=== PATIENT | male | born 1970 | race Caucasian/White ===

== ENCOUNTER 2019-01-15 15:40 | Emergency (ER) | payer BC ==
--- NOTE | 2019-01-15 16:23 | ED Physician Chart ---
ED Chief Complaint/HPI - Patient Information Date Seen:: 01/15/19 Time Seen:: 16:19 Chief Complaint:: abd pain possible blood in stool History of Present Illness:: 48 yr old male with acute onset llq abd pain since thurs no fever or diarhea no vomiting or hematemesis ED Review of Systems - Review of Systems General/Constitutional: No fever, No chills, No weight loss, No weakness, No diaphoresis, No edema, No loss of appetite Skin: No skin lesions, No rash, No bruising Head: No headache, No light-headedness Eyes: No loss of vision, No pain, No diplopia ENT: No earache, No nasal drainage, No sore throat, No tinnitus Neck: No neck pain, No swelling, No thyromegaly, No stiffness, No mass noted Cardio Vascular: No chest pain, No palpitations, No PND, No orthopnea, No edema Pulmonary: No SOB, No cough, No sputum, No wheezing GI: Pain, Melena G/U: No dysuria, No frequency, No hematuria Musculoskeletal: No bone or joint pain, No back pain, No muscle pain Endocrine: No polyuria, No polydipsia Psychiatric: No prior psych history, No depression, No anxiety, No suicidal ideation Hematopoietic: No bruising, No lymphadenopathy Allergic/Immuno: No urticaria, No angioedema Neurological: No syncope, No focal symptoms, No weakness, No paresthesia, No headache, No seizure, No dizziness, No confusion, No vertigo ED Past Medical History - Past Medical History Past Medical History: No significant medical hx ED Physical Exam - Physical Examination General/Constitutional: Awake, Well-developed, well-nourished, Alert, No distress, GCS 15, Non-toxic appearing, Ambulatory Head: Atraumatic Eyes: Lids, conjuctiva normal, PERRL, EOMI Skin: Nl inspection, No rash, No skin lesions, No ecchymosis, Well hydrated, No lymphadenopathy ENMT: External ears, nose nl, Nasal exam nl, Lips, teeth, gums nl Neck: Nontender, Full ROM w/o pain, No JVD, No nuchal rigidity, No bruit, No mass, No stridor Respiratory: Nl effort/Exclusion, Clear to Auscultation, No Wheeze/Rhonchi/Rales Cardio Vascular: RRR, No murmur, gallop, rubs, NL S1 S2 GI: Normal BS's Other GI comments:: LLQ tenderness with deep palpation mild perioteneal signs : No CVA tenderness Extremities: No tenderness or effusion, Full ROM, normal strength in all extremities, No edema, Normal digits & nails Neuro/Psych: Alert/oriented, DTR's symmetric, Normal sensory exam, Normal motor strength, Judgement/insight normal, Mood normal, Normal gait, No focal deficits Misc: Normal back, No paraspinal tenderness ED Assessment - Assessment General Assessment: abd pain ED Septic Shock - . Is Septic Shock (SBP<90, OR Lactate>4 mmol\L) present?: No ED Reassessment (Disposition) - Reassessment Reassessment:: abd pain - Diagnosis Diagnosis:: abd pain - Patient Disposition Discharge/Transfer:: Home Condition at Disposition:: Stable
[2019-01-15 16:58] LABS: BASOPHILE ABSOLUTE 0.8 Th/cumm (0-0.2); EOSINOPHILE ABSOLUTE 0.3 Th/cmm (0.1-0.4); HEMATOCRIT 47.1 % (41.0-60); HEMOGLOBIN 15.7 gm/dL (12-16); LYMPHOCYTE ABSOLUTE 3.4 Th/cmm (1.5-3.0); MEAN CELL VOLUME 86.9 fl (80-99); MEAN CORPUSCULAR HGB CONC 33.4 pg (28.0-36.0); MONOCYTE ABSOLUTE 1.1 Th/cmm (0.3-1.0); NEUTROPHILE ABSOLUTE 11.2 Th/cmm (1.8-8.0); PLATELET COUNT 425 Th/cmm (150-400); RED BLOOD COUNT 5.42 Mil/cmm (4.30-5.70)
[2019-01-15 17:16] LABS: WHITE BLOOD COUNT 16.8 Th/cmm (4.8-10.8)
[2019-01-15 17:36] LABS: BAND NEUTROPHILE 2 % (0-10); BASOPHIL 0 % (0-3); EOSINOPHIL 1 % (0-5); LYMPHOCYTE 20 % (20-50); MONOCYTE 5 % (2-10); NEUTROPHILS 72 % (40-80)
[2019-01-15 17:37] LABS: PLATELET ESTIMATE ADEQUATE (NORMAL)
[2019-01-15 17:53] LABS: URINE SOURCE CLEAN C
[2019-01-15 17:58] LABS: URINE BILIRUBIN NEGATIVE (NEGATIVE); URINE BLOOD NEGATIVE (NEGATIVE); URINE GLUCOSE (UA) NEGATIVE (NEGATIVE); URINE KETONE NEGATIVE (NEGATIVE); URINE LEUKOCYTE ESTERASE NEGATIVE (NEGATIVE); URINE NITRATE NEGATIVE (NEGATIVE); URINE PROTEIN NEGATIVE (NEGATIVE); URINE UROBILINOGEN 0.2 E.U./dL (0.2 - 1.0)
[2019-01-15 17:59] LABS: URINE CLARITY CLEAR (CLEAR); URINE COLOR YELLOW
[2019-01-15 18:00] LABS: URINE MICROSCOPIC INDICATED? YES
[2019-01-15 18:18] LABS: URINE BACTERIA NONE SEEN /hpf (NONE SEEN); URINE EPITHELIAL CELLS RARE /lpf (FEW); URINE RBC NONE SEEN /hpf (0-5); URINE WBC NONE SEEN /hpf (0-5)
--- NOTE | 2019-01-16 07:31 | Diagnostic Imaging Report ---
Exam: CT examination of the pelvis HISTORY: Abdominal pain Total DLP equals 671 CTDI equals 12.3 Findings: Multiple contiguous thin section of the abdomen pelvis obtained from lower thorax to the pubic symphysis without the administration intravenous or oral contrast material, no prior studies available comparison. The study demonstrates normal density liver parenchyma. The spleen is intact. The gallbladder is normal. The pancreas is normal. Adrenal glands intact. The kidneys demonstrate no evidence of obstructive uropathy or nephrolithiasis. There is no evidence of diverticular disease of diverticulitis. The urinary bladder is intact. Small left inguinal hernia containing fat appreciated. There is evidence for mild inflammatory changes in the descending colon might represent colitis. Bony structures demonstrate no evidence for lytic or blastic lesions. IMPRESSION: Mild inflammatory changes in the descending colon wall suggestive of colitis, clinical correlation recommended.
== END 2019-01-15 18:31 | disposition home or self-care (01) ==
LOC: ER 15:40
DX: R10.31 Right lower quadrant pain (principal); K92.1 Melena
CPT/HCPCS: 36415-UA; 81001-TC; 83605; 85007-TC; 85025-TC